=== PATIENT | male | born 1990 | race Caucasian/White ===

== ENCOUNTER 2016-12-05 11:15 | Emergency (ER) | payer BC | END 2016-12-05 13:24 | disposition home or self-care (01) | LOC: ER 11:15 | DX: J00 Acute nasopharyngitis [common cold] (principal); J01.10 Acute frontal sinusitis, unspecified; F17.290 Nicotine dependence, other tobacco product, uncomplicated | CPT/HCPCS: 71020; 87804 ==

== ENCOUNTER 2016-12-10 08:41 | Emergency (ER) | payer BC | END 2016-12-10 10:12 | disposition home or self-care (01) | LOC: ER 08:41 | DX: J01.10 Acute frontal sinusitis, unspecified (principal); J30.2 Other seasonal allergic rhinitis ==